=== PATIENT | female | born 1995 | race Two or more races ===

== ENCOUNTER 2020-12-25 03:15 | Emergency (ER) | payer MEDICAID ==
[~2020-12-25] VITALS: Ht 157.5 cm; Wt 65.8 kg
[2020-12-25] MEDS ORDERED: KETOROLAC TROMETH 30 MG/ML 1ML VIAL IV ONE (03:45)
[2020-12-25] MEDS ORDERED: fentaNYL CITRATE 100 MCG/2 ML VL IV ONE (03:45)
[2020-12-25] MEDS ORDERED: ONDANSETRON HCL 4 MG/2 ML VIAL IV ONE (04:30)
[2020-12-25 06:57] VITALS: BP 113/74
== END 2020-12-25 07:01 | disposition home or self-care (01) ==
LOC: ER 03:15
DX: S83.91XA Sprain of unspecified site of right knee, initial encounter (principal); W51.XXXA Accidental striking against or bumped into by another person, initial encounter; Y93.89 Activity, other specified; Y92.89 Other specified places as the place of occurrence of the external cause; Y99.8 Other external cause status
CPT/HCPCS: 73562; 96374; 96375; 99284; J1885; J3010